=== PATIENT | female | born 1955 | race Caucasian/White ===

== ENCOUNTER 2017-01-28 10:41 | Inpatient (IN) | payer OTHER ==
[~2017-01-28] VITALS: Ht 165.1 cm; Wt 59.0 kg
[~2017-01-28 10:41] MED LIST: AUGMENTIN 875 M1 TAB PO; CLINDAMYCIN HY300 MG PO; LEXAPRO10 M1 PO; PERCOCET 325 MG1 TA2 PO
--- NOTE | 2017-01-28 10:48 | ED GENERAL ADULT ---
See Addendum History of Present Illness General Chief Complaint: ETOH/Drug Related Complaint Stated Complaint: BIBA FOR ?OD Source: patient, family, old records, EMS Exam Limitations: no limitations Vital Signs & Intake/Output Vital Signs & Intake/Output Vital Signs Date Time Temp Pulse Resp B/P B/P Pulse O2 O2 Flow FiO2 Mean Ox Delivery Rate 01/28 2230 96 Nasal 4.0L Cannula 01/28 2136 99.5 87 15 134/92 93 Nasal 4.0L Cannula 01/28 1827 97.3 96 20 144/92 97 Nasal 4.0L Cannula 01/28 1627 97.9 97 15 120/77 96 Nasal 4.0L Cannula 01/28 1507 98.2 87 15 118/78 96 Nasal 3.0L Cannula 01/28 1314 98 Nasal 3.0L Cannula 01/28 1314 98.8 88 14 122/76 98 Nasal 3.0L Cannula 01/28 1237 104 16 134/85 94 Nasal 3.0L Cannula 01/28 1110 99.5 97 20 146/88 96 Nasal 4.0L Cannula ED Intake and Output 01/29 0000 01/28 1200 Intake Total Output Total Balance Patient 130 lb Weight Weight Reported by Patient Measurement Method Allergies Coded Allergies: ampicillin (Intermediate, HIVES 01/28/17) azithromycin (Intermediate, HIVES 01/28/17) Reconcile Medications AMOXICILLIN/POTASSIUM CLAV (Augmentin 875-125 Tablet) 875 MG/125 MG TAB 1 TAB PO BID DENTAL INFECTION AMOXICILLIN/POTASSIUM CLAV (Augmentin 875-125 Tablet) 875 MG/125 MG TAB 1 TAB PO BID INFECTION CLINDAMYCIN HCL (Clindamycin Hydrochloride) 300 MG CAPSULE 1 CAP PO 4 TIMES/ DAY oral infection Escitalopram Oxalate (Lexapro 10MG) 10 MG TABLET 1 TAB PO PRN DEPRESSION ( Reported) OXYCODONE HCL/ACETAMINOPHEN (Percocet 5-325 MG Tablet) 325 MG/5 MG TAB 1 TAB PO Q4-6 PRN PRN PAIN OXYCODONE HCL/ACETAMINOPHEN (Percocet 5-325 MG Tablet) 325 MG/5 MG TAB 1-2 TAB PO Q4-6 PRN PRN PAIN Triage Nurses Notes Reviewed? yes HPI: Patient was found semi-responsive snoring respirations by her son. Patient goes to the methadone clinic. Upon EMS arrival patient was given Narcan. Patient then became very combative and nauseous. Upon arrival to the emergency room patient is much more calm down. Patient denies any suicidal ideations. Patient states that she just takes her methadone as prescribed. (YAMILE ARAYA,MARCELLA Kwon) Past History Travel History Traveled to [place] past 21 day No Medical History Any Pertinent Medical History? see below for history Neurological: migraine EENT: tonsil infections Cardiovascular: PALPITATIONS Respiratory: bronchitis, COPD, pneumonia Gastrointestinal: GAS Hepatic: NONE Renal: NONE Musculoskeletal: sciatica Psychiatric: depression Endocrine: NONE Blood Disorders: NONE Cancer(s): NONE GEOPHYSICAL OPERATOR/Reproductive: NONE Surgical History Surgical History: non-contributory Psychosocial History What is your primary language Spanish Tobacco Use: Current Daily Use Daily Tobacco Use Amount/Type: => 5 Cigarettes daily ETOH Use: occasional use Illicit Drug Use: ON METHADONE Family History Hx Contributory? No (YAMILE ARAYA,MARCELLA Kwon) Review of Systems Review of Systems Constitutional: Reports: no symptoms. EENTM: Reports: no symptoms. Respiratory: Reports: no symptoms. Cardiovascular: Reports: no symptoms. GI: Reports: see HPI, nausea. Genitourinary: Reports: no symptoms. Musculoskeletal: Reports: no symptoms. Skin: Reports: no symptoms. Neurological/Psychological: Reports: no symptoms. Hematologic/Endocrine: Reports: no symptoms. Immunologic/Allergic: Reports: no symptoms. All Other Systems: Reviewed and Negative (YAMILE ARAYA,MARCELLA Kwon) Physical Exam Physical Exam General Appearance: well developed/nourished, alert, awake, mild distress Head: atraumatic, normal appearance Eyes: Bilateral: PERRL, EOMI. Ears, Nose, Throat: normal pharynx, normal ENT inspection, hearing grossly normal Neck: normal inspection, supple, full range of motion Respiratory: normal breath sounds, chest non-tender, no respiratory distress, lungs clear Cardiovascular: regular rate/rhythm, normal peripheral pulses Gastrointestinal: normal bowel sounds, soft, non-tender, no organomegaly Back: normal inspection, normal range of motion Extremities: normal inspection, normal capillary refill, normal range of motion, no edema Neurologic/Psych: no motor/sensory deficits, awake, alert, oriented x 3, normal mood/affect Skin: intact, normal color, warm/dry Lymphatic: no anterior cervical suzi Core Measures ACS in differential dx? No CVA/TIA Diagnosis: No Severe Sepsis Present: No Septic Shock Present: No (YAMILE ARAYA,MARCELLA Kwon) Progress Differential Diagnoses I considered the following diagnoses in my evaluation of the patient: [ ACCIDENTAL OVERDOSE, SI, NARCOTIC ABUSE] Plan of Care: Orders Procedure Date/time Status Regular Diet 01/29 B Active Patient Data 01/29 0151 Active OXYGEN SETUP (GEN) 01/29 013 Active Saline Lock 01/29 013 Active Admit to inpatient 01/29 135 Active Activity/Ambulation 01/29 135 Active BLOOD CULTURE 01/29 135 Active Discharge Patient 01/[address] in observation 01/28 1708 Active Patient Data 01/28 1708 Active Vital Signs 01/28 1708 Active Code Status 01/28 1708 Active Durable Medical Equipment 01/28 1603 Active ED CRISIS PSYCH CONSULT 01/28 1536 Active Telemetry/Field Examiner 01/28 1044 Active URINE DRUGS OF ABUSE 01/28 1044 Complete ETHANOL 01/28 1044 Complete COMPREHENSIVE METABOLIC PANEL 01/28 1044 Complete CBC WITHOUT DIFFERENTIAL 01/28 1044 Complete Current Medications Sig/Gen Start time Last Medication Dose Stop Time Status Admin Clindamycin 600 MG ONCE ONE 01/29 0145 AC (Cleocin) 01/29 0214 Dextrose/Water 50 ML (D5W) Dextrose/Water 1,000 ML Q8H 01/28 1315 AC 01/28 (D5W 1000) 2136 Laboratory Tests 01/28/17 1123: Anion Gap 9, Estimated GFR > 60, BUN/Creatinine Ratio 15.0, Glucose 81, Calcium 8.8, Total Bilirubin 0.3, AST 24, ALT 36, Alkaline Phosphatase 75, Total Protein 5.9 L, Albumin 3.8, Globulin 2.1, Albumin/Globulin Ratio 1.8, CBC w Diff MAN DIFF ORDERED, RBC 4.24, MCV 103.7 H, MCH 34.0 H, RDW 14.0, MPV 6.1 L, Gran % 91.8 H, Lymphocytes % 4.2 L, Monocytes % 3.3, Eosinophils % 0.5, Basophils % 0.2, Absolute Granulocytes 18.3 H, Segmented Neutrophils 84 H, Band Neutrophils 6 H, Absolute Lymphocytes 0.8 L, Lymphocytes 4 L, Monocytes 4, Absolute Monocytes 0.7 H, Eosinophils 1, Absolute Eosinophils 0.1, Absolute Basophils 0, Metamyelocytes 1, Normocytic RBCs VERIFIED, Normochromic RBCs VERIFIED, PUBS MCHC 32.8 L, Serum Alcohol < 10.0 01/28/17 1121: Urine Opiates Screen < 100.00, Methadone Screen > 735 H, Barbiturate Screen < 60, Ur Phencyclidine Scrn 7.50, Amphetamines Screen < 100, U Benzodiazepines Scrn < 85, Urine Cocaine Screen < 50, Urine Cannabis Screen < 5.00 Microbiology 01/29 0145 BLOOD: Blood Culture - RECD 01/29 0135 BLOOD: Blood Culture - ORD Diagnostic Imaging: Viewed by Me: Radiology Read. Discussed w/RAD: Radiology Read. Radiology Impression: PATIENT: KAYLEE SURESH PRESENT AGE: 61 PATIENT ACCOUNT NO: [id number] : 56 LOCATION: [facility] ORDERING PHYSICIAN: MARCELLA OVALLE MD SERVICE DATE: 01/28/17-1136 EXAM TYPE: RAD - XRY-SHOULDER COMPLETE-RIGHT EXAMINATION: XR SHOULDER, RIGHT CLINICAL INFORMATION: Fall with pain COMPARISON: 02/26/2013 TECHNIQUE: AP external rotation, Grashey, scapular Y, and axillary views of the right shoulder. FINDINGS: There is an old fracture involving the right humerus with subluxation of the humeral head. At the time of the 2012 study this appeared to be acute. Of note, since the prior exam there has developed a comminuted distal right clavicular fracture which is most likely the cause of the patient's acute pain. Minimal fracture fragment displacement is seen. IMPRESSION: 1. Acute fracture right clavicle. 2. Old fracture right humerus. DICTATED BY: NGA NI MD DATE/TIME DICTATED:01/28/171252 FOOTWEAR SALES LEADER:JEREMÍAS DATE/TIME TRANSCRIBED:01/28/171252 CONFIDENTIAL, DO NOT COPY WITHOUT APPROPRIATE AUTHORIZATION. <Electronically signed in Other Vendor System> SIGNED BY: NGA NI MD 01/28/17 1335 Initial ED EKG: none Hand-Off Endorsed To: LADONNA PEÑA MD Endorsed Time: 2112 Pending: consult (CRISIS) Comments: Patient's son states that she took an extra 60 mg of methadone this morning. (YAMILE ARAYA,MARCELLA Kwon) CXR Impression: RLL infiltrate (LDAONNA PEÑA MD) Departure Departure Disposition: STILL A PATIENT Condition: Stable Referrals: [facility] CM APRN (PCP/Family) Additional Instructions: RETURN FOR ANY CONCERNS Departure Forms: Customer Survey General Discharge Information (MARCELLA OVALLE MD) Departure Time of Disposition: 0100 Clinical Impression Primary Impression: Pneumonia Qualifiers: Pneumonia type: due to unspecified organism Laterality: left Lung location: lower lobe of lung Qualified Code: J18.1 - Lobar pneumonia, unspecified organism Secondary Impressions: Opiate overdose Qualifiers: Encounter type: initial encounter Injury intent: accidental or unintentional Qualified Code: T40.601A - Poisoning by unspecified narcotics, accidental (unintentional), initial encounter Right clavicle fracture Qualifiers: Encounter type: initial encounter Clavicle location: unspecified part of clavicle Fracture type: closed Fracture alignment: nondisplaced Qualified Code: S42.001A - Fracture of unspecified part of right clavicle, initial encounter for closed fracture Admission Note Spoke With: EDWARD GALVAN MD Documentation of Exam: Documentation of any treatments & extenuating circumstances including Concerns Regarding Discharge (functional status, medication knowledge or non-compliance, living conditions, etc.) that warrant an admission rather than observation: Supplemental oxygen IV antibiotics serial beta agonist nebs medication adjustment pulmonary evaluation continuing care discharge planning (LADONNA PEÑA MD) Critical Care Note Critical Care Note Critical Care Time: non-applicable (MARCELLA OVALLE MD) ED Attending Observation Initial Observation Note: I have seen and personally examined KAYLEE SURESH on 01/28/17 at 1718. I agree with the current emergency department documentation. The disposition (admission or discharge) is uncertain at this time, she needs a period of observation for the following reason(s): [METHADONE OVERDOSE, RECEIVED NARCAN, WILL NEED CRISIS EVAL.] The ED Nurse caring for this patient has been personally informed as to what the patient is being observed for. Observation Re-Evaluation: I have reevaluated KAYLEE SURESH on 01/28/17 at 2113. The physical findings that support the continued need to observe this patient include [patient still somnolent however will wake up when she is talk to. Her lungs are clear to auscultation heart regular rate and rhythm.]. (MARCELLA OVALLE MD) Observation Discharge: I have reevaluated KAYLEE SURESH on 01/29/17 at 0158. The patient is: (): Stable for discharge (x): To be admitted to Nursing Floor (): To be placed in Observation on Nursing Floor (): For transfer to other facility The patient was being observed for opiate overdose As a result of that observation, I have determined requires hospitalization for treatment of pneumonia. (CASEY ARAYA,LADONNA)
--- NOTE | 2017-01-28 11:16 | NUR ---
PT BIBA FROM HOME WHERE SHE WAS FOUND UNRESPONSIVE WITH AGONAL RESPIRATIONS AFTER TAKING HER METHADONE. PT RECEIVED NARCAN CITY DISPATCHER IN ED. PT AWAKE AND ALERT. PT STATES RECENTLY HAD METHADONE DOSE DECREASED FROM 130 MG TO 125 MG. PT STATES SHE IS UNSURE IF SHE TOOK ANY OTHER MEDICATIONS. PT C/0 RIGHT SHOULDER PAIN FROM FALL IN SHOWER THIS MORNING PRIOR TO OD INCIDENT. PT CHANGED INTO SCRUBS ASSISTED TO BR FOR URINE SPECIMEN. PT ARRIVE TO ED IN WET CLOTHES
--- NOTE | 2017-01-28 11:25 | NUR ---
BLOOD AND URINE COLLECTED AND SENT TO LAB BLOOD: YUMIKO CONDE PINK BLUE TUBES COLLECTED URINE TRIO SET COLLECTED
--- NOTE | 2017-01-28 11:30 | NUR ---
PRE-HOSP IV NOTED TO BE COMPLETELY DISLODGED. NEW 20G PIV PLACED RFA, PT NSR 90S ON MONITOR WITH 02 SATS MID 90S ON 2.5L NC (HX COPD, "I'M SUPPOSED TO WEAR 02 AT HOME, BUT I DON'T.") CYCLING BPS STABLE. SON VISITING. PT REQUESTING WATER BUT VERY DROWSY, MOUTH SWABS PROVIDED. 1 BELONGINGS BAG PLACED IN CLOSET, PT ALREADY IN BLUE SCRUBS, NO VALUABLES FOUND.
[2017-01-28 11:32] LABS: ABSOLUTE BASOPHIL COUNT 0 /CUMM (0.0-0.2); ABSOLUTE EOSINOPHIL COUNT 0.1 /CUMM (0.0-0.7); ABSOLUTE GRANULOCYTE CT 18.3 /CUMM (1.4-6.5); ABSOLUTE LYMPH COUNT 0.8 /CUMM (1.2-3.4); ABSOLUTE MONOCYTE COUNT 0.7 /CUMM (0.10-0.60); BASOPHIL % 0.2 % (0.0-2.0); EOSINOPHIL % 0.5 % (0-5); GRANULOCYTE % 91.8 % (42.2-75.2); HEMATOCRIT 43.9 % (37-47); MEAN CORPUSCULAR HGB CONC 32.8 G/DL (33.0-37.0); MEAN CORPUSCULAR VOLUME 103.7 FL (81.0-99.0); MEAN PLATELET VOLUME 6.1 FL (7.4-10.4); PLATELET COUNT 298 /CUMM (130-400); RED BLOOD CELL CT 4.24 /CUMM (4.20-5.40); WHITE BLOOD CELL COUNT 19.9 /CUMM (4.8-10.8)
--- NOTE | 2017-01-28 12:10 | NUR ---
XRAY BEING DONE PORTABLY AT BEDSIDE R/T PT'S LEVEL OF SEDATION AND SITTER.
--- NOTE | 2017-01-28 12:55 | NUR ---
PT VERY SOMNOLENT, VSS ON 02 NC, AROUSABLE WITH TACTILE STIMULATION BUT FALLS BACK TO SLEEP QUICKLY. PT UP TO COMMODE WITH SITTER PRESENT, ON COMMODE X10MIN AND SLEEPING ON COMMODE. RETURNED TO STRETCHER AFTER 10MIN PT UNABLE TO STAY AWAKE. PT THEN INSISTING ON GETTING OOB TO BR AGAIN; PLACED ON BEDPAN. SITTER REMAINS AT BEDSIDE.
--- NOTE | 2017-01-28 13:35 | RADIOLOGY REPORT ---
EXAMINATION: XR SHOULDER, RIGHT CLINICAL INFORMATION: Fall with pain COMPARISON: 02/26/2013 TECHNIQUE: AP external rotation, Grashey, scapular Y, and axillary views of the right shoulder. FINDINGS: There is an old fracture involving the right humerus with subluxation of the humeral head. At the time of the 2012 study this appeared to be acute. Of note, since the prior exam there has developed a comminuted distal right clavicular fracture which is most likely the cause of the patient's acute pain. Minimal fracture fragment displacement is seen. IMPRESSION: 1. Acute fracture right clavicle. 2. Old fracture right humerus.
--- NOTE | 2017-01-28 14:12 | NUR ---
JUAN C TO VERIFY HOME MEDS DUE TO CURRENT CIRCUMSTANCES
--- NOTE | 2017-01-28 15:08 | NUR ---
REMAINS SOMNOLENT, AROUSES TO NOXIOUS STIMULI, ON MONITOR WITH VSS. SITTER REMAINS IN ATTENDANCE.
--- NOTE | 2017-01-28 17:00 | NUR ---
PT MOVED TO [facility], PER MD DOES NOT NEED TELE, REMAINS ON CONT 02 SATS WITH 02 NC 3L MAINTAINING SATS 96-99. REMAINS SOMNOLENT, RAY WITH NOXIOUS STIMULI.
--- NOTE | 2017-01-28 18:28 | NUR ---
PT WOKE WITH VITALS, REMAINS DROWSY, AMBULATED TO BATHROOM WITH 1 ASSIST AND PORTABLE 02. NEEDS FREQUENT PROMPTS TO STAY AWAKE WHEN SITTING ON TOILET. RETURNED TO STRETCHER, ASKING TO SMOKE, REORIENTED TO PLACE/TIME/POC. REMAINS ON PORTABLE MONITOR FOR CONTINUOUS SP02.
--- NOTE | 2017-01-28 18:58 | NUR ---
NICOTENE PATCH APPLIED PER MD ORDER/PT REQUEST. PT ASLEEP ON STRETCHER, NOW AROUSING ONLY TO NOXIOUS STIMULI. VSS.
--- NOTE | 2017-01-28 19:38 | NUR ---
RIGHT SHOULDER IMMOBILIZER APPLIED PER ORDER (CLAVICULAR FX ON XRAY). PT SLEPT THROUGH THIS, SATS MID 90S ON 3LNC.
--- NOTE | 2017-01-28 20:31 | ED PSY CRISIS COLLATERAL NOTE ---
Collateral Note Collateral Note Family/Inform/Adama Contacts: IDALIA spoke with the patient's (Man Nicolas [phone]) and son (Milind Nicolas), for collateral information. Man deferred to their son, Milind for the majority of the information. Milind notes that his mother "is an addict," and has been "clean on Methadone for 1 year." Milind notes that the patient told him today that she took an extra 60mg of Methadone, in addition to her standard 125mg dose. Milind reports that his mother often states that she does not feel good in the morning time and he believes that she may have saved some Methadone from previous doses to take in the morning time. Milind notes that she receives bottles to take home, a week at a time, noting that she went today and he has the other 6 bottles. Milind is not aware that the patient has ever had any mental health issues and and states that the patient primarily struggles with her substance abuse issues. Milind states that he has never known the patient to be suicidal or homicidal and is not concerned that she is a danger to herself or others. He is concerned that "her addiction will kill her." Milind is aware that the patient will be here overnight and would like to be contacted in the AM.
--- NOTE | 2017-01-28 21:30 | NUR ---
C/O PAIN TO PROBE ON FINGER "ITS TOO TIGHT GET ME THE FUCK OUT OF HERE." ICE WATER PROVIDED PER DEMAND. REMAINS AGITATED WITH POOR INSIGHT INTO ILLNESS
--- NOTE | 2017-01-28 21:35 | NUR ---
PT AMBULATORY TO AND FROM BATHROOM, AFTER WALKING SP02 MID 80S ON RA. PLACED BACK ON NC WITH CONT SP02. AWAKE AND ALERT AT THIS TIME.
--- NOTE | 2017-01-28 22:34 | NUR ---
D/W DR PEÑA THAT SP02 ON RA REMAINS MID 80S DESPITE PT BEING AWAKE AND ALERT. PT REPORTS SHE FEELS AT BASELINE RESP LUONG, PT REPORTS HEAVY SMOKING WITH CHRONIC COPD AND CHRONIC CONGESTED COUGH. CONFIRMED WITH PT THAT SHE HAS BEEN PRESCRIBED HOME 02 BUT REFUSES TO WEAR. DENIES ANY NEW SYMPTOMS. REMAINS ON 02 IN HALLWAY AT THIS TIME, RT AT BEDSIDE WITH ALENA VIEIRA, AWAITING CXR RESULTS FOR POC. CRISIS TO EVAL PT IN THE AM.
--- NOTE | 2017-01-28 23:07 | RADIOLOGY REPORT ---
EXAMINATION: XR PORTABLE CHEST CLINICAL INFORMATION: Hypoxia. COMPARISON: 07/23/2016, 07/07/2012. TECHNIQUE: Portable AP view of the chest was obtained. FINDINGS: The cardiomediastinal silhouette is unremarkable. Lung volumes appear somewhat diminished. There is patchy opacity identified in the infrahilar right lung field medially suggesting evolving infiltrate and pneumonia in the proper clinical setting. The lungs and pleural spaces otherwise appear clear without evidence of congestion, consolidation, or significant appearing effusion or atelectasis. There is no evidence of pneumothorax or pulmonary edema. Included osseous structures appear largely unremarkable. IMPRESSION: Low lung volumes with questionable evolving right lower lung field infrahilar infiltrate for which follow-up PA and lateral films when possible recommended.
--- NOTE | 2017-01-28 23:30 | NUR ---
PT AGAIN SLEEPING IN HALLWAY. REPORTED FEELING "BETTER" AFTER NEB, STATES HAS NEBULIZER AND MEDS FOR IT AT HOME. PLACED ON LIQUID 02 TANK BY RT. REPORT GIVEN TO SUPERINT[employer]ENT OPERATIONS DIVISION.
--- NOTE | 2017-01-29 01:51 | NUR ---
PT AWAKE AGITATED AT BEING IN [place] ALL DAY REPORTS THAT HER WAS ADMITTED TO HOSPITAL TODAY ALLSO REQUESTS HER METHADONE, PT AWARE SHE IS BEING ADMITTED AND THAT SHE TOOK TOO MUCH METHADONE AND WILL NOT GET IT UNTIL AM.
--- NOTE | 2017-01-29 02:14 | NUR ---
PT SOMEWHAT CONFUSED THICK HARSH COUGH, UNABLE TO REMEMBER TO COVER MOUTH WHEN COUGHING GIVEN WATER, BUT THEN BEGAN COUGHING MED WITH TYLENOL 975 MG PO NEW IV SITE PLACED D/T IV SITE TO RT ARM WHERE PT IS IN SLING
--- NOTE | 2017-01-29 02:33 | History & Physical ---
PABLO ARAYA,CLOVER 01/29/17 0232: General Information and HPI MD Statement: I have seen and personally examined KAYLEE NICOLAS and documented this H&P. The patient is a 61 year old F who presented with a patient stated chief complaint of [COUGH, SHORTNESS OF BREATH]. Source of Information: patient Exam Limitations: poor historian History of Present Illness: Patient is a poor historian so much of the information will need re- confirmation. 61 yo F with past medical condition of COPD not requiring O2 at home (follows Dr Almodovar), and not other medical conditions was brought in by ambulance earlier today after her son (Milind Nicolas) found her semi-responsive in her home. 911 was called and EMS gave her Narcan, to which she became alert, combative, and nauseous. She was brought in the emergency department, but was unable to give proper history, her son Milind was able to provide history to the ED crisis team that she has pain on a long-term substance abuser, recently on methadone for a year, but has been occasionally taking extra dose of methadone. Her standard dose is 125 mg of Methadone daily. Patient was initially admitted as ED FOR opiate overdose, but was found to be hypoxic and requiring additional oxygen on ambulation, chest x-ray was done which shows questionable developing pneumonia. Patient endorses only shortness of breath. Not sure if patient vomited at home in her semi-arousable state. Patient denies any fever, chills, cough, chest pain, leg swelling, changes in bowel habits, recent travel, any sick contacts. Once again, patient is a poor historian so most of the history needs reconfirmation. Patient was complaining of right upper side of chest/shoulder region pain, but was not sure whether she had any trauma/fall injury. Allergies/Medications Allergies: Coded Allergies: ampicillin (Intermediate, HIVES 01/28/17) azithromycin (Intermediate, HIVES 01/28/17) Home Med list Escitalopram Oxalate (Lexapro) 10 MG TABLET 1 TAB PO DAILY MENTAL HEALTH ( Reported) Past History Travel History Traveled to [place] past 21 day No Medical History Neurological: migraine EENT: tonsil infections Cardiovascular: PALPITATIONS Respiratory: bronchitis, COPD, pneumonia Gastrointestinal: GAS Hepatic: NONE Renal: NONE Musculoskeletal: sciatica Psychiatric: depression Endocrine: NONE Blood Disorders: NONE Cancer(s): NONE HOSPICE CLINICAL MARKETER/Reproductive: NONE Surgical History Surgical History: non-contributory Past Family/Social History Psychosocial History Where do you live? Home Who Do You Live With? spouse, child Primary Language: Italian Smoking Status: Current Everyday Smoker (1 pack per day) ETOH Use: occasional use Illicit Drug Use: ON METHADONE Functional Ability ADLs Independent: dressing, eating, toileting, bathing. Review of Systems Review of Systems Constitutional: Reports: see HPI. Denies: fever. EENTM: Reports: no symptoms. Cardiovascular: Reports: no symptoms. Respiratory: Reports: see HPI, short of breath. Denies: cough. GI: Reports: no symptoms. Genitourinary: Reports: no symptoms. Musculoskeletal: Reports: see HPI, joint pain (right shoulder). Skin: Reports: no symptoms. Neurological/Psychological: Reports: no symptoms. Hematologic/Endocrine: Reports: no symptoms. All Other Systems: Reviewed and Negative Exam & Diagnostic Data Last 24 Hrs of Vital Signs/I&O Vital Signs Date Time Temp Pulse Resp B/P B/P Pulse O2 O2 Flow FiO2 Mean Ox Delivery Rate 01/29 0223 97.5 89 18 110/76 95 Nasal 2.0L Cannula 01/28 2230 96 Nasal 4.0L Cannula 01/28 2136 99.5 87 15 134/92 93 Nasal 4.0L Cannula 01/28 1827 97.3 96 20 144/92 97 Nasal 4.0L Cannula 01/28 1627 97.9 97 15 120/77 96 Nasal 4.0L Cannula 01/28 1507 98.2 87 15 118/78 96 Nasal 3.0L Cannula 01/28 1314 98 Nasal 3.0L Cannula 01/28 1314 98.8 88 14 122/76 98 Nasal 3.0L Cannula 01/28 1237 104 16 134/85 94 Nasal 3.0L Cannula 01/28 1110 99.5 97 20 146/88 96 Nasal 4.0L Cannula Intake & Output 01/29 0800 01/29 0000 01/28 1600 Intake Total Output Total Balance Patient 58.967 kg Weight Weight Reported by Patient Measurement Method Last 24 Hrs of Labs/Man: Laboratory Tests 01/28/17 1123: Anion Gap 9, Estimated GFR > 60, BUN/Creatinine Ratio 15.0, Glucose 81, Calcium 8.8, Total Bilirubin 0.3, AST 24, ALT 36, Alkaline Phosphatase 75, Total Protein 5.9 L, Albumin 3.8, Globulin 2.1, Albumin/Globulin Ratio 1.8, CBC w Diff MAN DIFF ORDERED, RBC 4.24, MCV 103.7 H, MCH 34.0 H, RDW 14.0, MPV 6.1 L, Gran % 91.8 H, Lymphocytes % 4.2 L, Monocytes % 3.3, Eosinophils % 0.5, Basophils % 0.2, Absolute Granulocytes 18.3 H, Segmented Neutrophils 84 H, Band Neutrophils 6 H, Absolute Lymphocytes 0.8 L, Lymphocytes 4 L, Monocytes 4, Absolute Monocytes 0.7 H, Eosinophils 1, Absolute Eosinophils 0.1, Absolute Basophils 0, Metamyelocytes 1, Normocytic RBCs VERIFIED, Normochromic RBCs VERIFIED, PUBS MCHC 32.8 L, Serum Alcohol < 10.0 01/28/17 1121: Urine Opiates Screen < 100.00, Methadone Screen > 735 H, Barbiturate Screen < 60, Ur Phencyclidine Scrn 7.50, Amphetamines Screen < 100, U Benzodiazepines Scrn < 85, Urine Cocaine Screen < 50, Urine Cannabis Screen < 5.00 Microbiology 01/29 0200 BLOOD: Blood Culture - RECD 01/29 0145 BLOOD: Blood Culture - RECD Diagnostic Data CXR Results IMPRESSION: Low lung volumes with questionable evolving right lower lung field infrahilar infiltrate for which follow-up PA and lateral films when possible recommended. DICTATED BY: JASE VIRK MD DATE/TIME DICTATED:01/28/172300 GRADE CHECKER:JEREMÍAS DATE/TIME TRANSCRIBED:01/28/172300 Other Results Physical examnination: General: thin buit patient, not in distress, somnolent Head: Normocephalic, atraumatic Eyes: Pupils normal in size, regular, reacting to light and accommodation, EOM normal Ears: B/l normal on inspection Nose: Normal on inspection Throat/mouth: Dry mucosa Neck: Supple, full range of motion Heart: Regular rate, regular rhythm Lung: Normal breath sound bilaterally; additional conducted sound heard b/l no wheeze Abd: Soft, non-tender, no distention appreciated Back: Normal range of motion Neurologic: Somnolent, oriented to place, and time of the day, Speech is clear and coherent but exam is limited by her somnolence (exam done in the ED at night while the patient was just awake) Skin: Warm and dry Psychiatric: Calm, cooperative, coherant, no SI, no HI OF NOTE, SHE HAD A SLING POUCH OVER HER RIGHT SHOULDER AND DISTAL PART OF RIGHT CLAVICLE WAS TENDER TO TOUCH. IMPRESSION: 1. Acute fracture right clavicle. 2. Old fracture right humerus. DICTATED BY: NGA NI MD DATE/TIME DICTATED:01/28/171252 GRADE CHECKER:JEREMÍAS DATE/TIME TRANSCRIBED:01/28/171252 Assessment/Plan Assessment: 61-year-old female with past medical history of COPD not requiring oxygen at home, and denying any other medical conditions, except polysubstance abuse, currently only on methadone was brought to the emergency department with suspicion of possible overdose. She was found to be hypoxic, requiring additional oxygen via nasal cannula, and was a question of possible aspiration pneumonia, she is admitted to general meedical floor. #Possible aspiration pneumonia: Starting patient on IV clindamycin, as she is allergic to ampicillin. Continue TRC/nebs. Follow-up LRC and blood culture. Gentle IV hydration. #Right clavicle fracture: Initial management has been done in the emergency department, consider consulting orthopedic service for further management of right clavicle fracture. Adequate pain management should be done, but needs to be further discussed after methadone overdose is taking care of. #Substance abuse, methadone overdose: Patient's vitals are stable except for respiratory status, thus withdrawn and would not be restarted at this point of time. Will avoid opiates for pain management. Need to reassess in the morning regarding pain management as the patient currently is asymptomatic at rest. #Diet: Heart healthy #DVT ppx: Lovenox #Code status: Full code As Ranked By This Provider Problem List: 1. Aspiration pneumonia 2. Opioid abuse 3. Right clavicle fracture Qualifiers Encounter type: initial encounter Clavicle location: unspecified part of clavicle Fracture type: closed Fracture alignment: nondisplaced Qualified Code: S42.001A - Fracture of unspecified part of right clavicle, initial encounter for closed fracture Core Measures/Miscellaneous Acute Coronary Syndrome ACS Diagnosis: No Cerebrovascular Accident CVA/TIA Diagnosis: No Congestive Heart Failure CHF Diagnosis: No VTE (View Protocol) VTE Risk Factors: Age > 40 No Mech VTE prophylaxis d/t: No contraindications No VTE Pharm Prophylaxis d/t: No contraindications VTE Diagnosis: No VTE Type: NONE VTE Confirmed by (Test): NONE Sepsis (View Protocol) Severe Sepsis Present: No Septic Shock Septic Shock Present: No Miscellaneous Documentation Attending Case Discussed With: Dr Edward Galvan Primary Care Physician: BOSTON CM APRN Patient sees these Specialists Internal Medicine Level of Patient Care: General Medicine EDWARD GALVAN MD 01/29/17 0402: Attending MD Review Statement Attending Statement Attending MD Statement: examined this patient, discuss w/resident/PA/PRINT PRODUCTION MANAGER, agreed w/resident/PA/PRINT PRODUCTION MANAGER, reviewed EMR data (avail) Attending Assessment/Plan: 61F PMH polysubstance abuse on Methadone, COPD brought into ED by family for somnolence and bradypnea, improved dramatically after being given Narcan, monitored in ED when she was noted to be short of breath, coughing, and requiring 4L NC to maintain oxygen saturation. CXR shows RLL infiltrate with WBC 19k, suspicious for aspiration pneumonia. Patient has no complaints other than generalized pain. Son not at bedside for further questions. 1. Methadone overdose, unintentional 2. Aspiration pneumonia in RLL 3. Hypoxia 4. COPD Plan - Admit to general medicine - Has Unasyn allergy, so will start Clindamycin for aspiration pneumonia - Sputum culture - Psychiatry consult - Will hold off on restarting Methadone until mental status improves, avoid opioids at this time - Gentle IV hydration - Continue home medications - DVT PPx
--- NOTE | 2017-01-29 03:33 | NUR ---
HOUSESTAFF AT BEDSIDE.
--- NOTE | 2017-01-29 03:36 | NUR ---
HOUSESTAFF AT BEDSIDE.
--- NOTE | 2017-01-29 05:23 | NUR ---
NO BED AVAILABLE, PT AWAITING HOSPITAL BED TO BE BROUGHT TO ED.
--- NOTE | 2017-01-29 05:24 | NUR ---
CURRENTLY NO INPT ORDERS.
--- NOTE | 2017-01-29 05:53 | NUR ---
PT REPORTS GETS HER METHADONE AT [facility] IN [facility]
[2017-01-29] MEDS ORDERED: PERCOCET 5-3251 EACH PO (06:12)
[2017-01-29 06:40] LABS: ABSOLUTE BASOPHIL COUNT 0 /CUMM (0.0-0.2); ABSOLUTE EOSINOPHIL COUNT 0 /CUMM (0.0-0.7); ABSOLUTE GRANULOCYTE CT 8.9 /CUMM (1.4-6.5); ABSOLUTE LYMPH COUNT 1.2 /CUMM (1.2-3.4); ABSOLUTE MONOCYTE COUNT 0.6 /CUMM (0.10-0.60); BASOPHIL % 0 % (0.0-2.0); EOSINOPHIL % 0.3 % (0-5); GRANULOCYTE % 83.2 % (42.2-75.2); HEMATOCRIT 42.9 % (37-47); MEAN CORPUSCULAR HGB 33.7 PG (27.0-31.0); MEAN CORPUSCULAR HGB CONC 32.5 G/DL (33.0-37.0); MEAN CORPUSCULAR VOLUME 103.8 FL (81.0-99.0); MEAN PLATELET VOLUME 5.8 FL (7.4-10.4); PLATELET COUNT 307 /CUMM (130-400); RBC DISTRIBUTION WIDTH 13.9 % (11.5-14.5); RED BLOOD CELL CT 4.14 /CUMM (4.20-5.40); WHITE BLOOD CELL COUNT 10.6 /CUMM (4.8-10.8)
--- NOTE | 2017-01-29 07:00 | NUR ---
ASSUMED CARE. PLAN IS FOR GEN MED ADMISSION. AWAITING GEN MED BED. Informed waiting has been performed.
--- NOTE | 2017-01-29 07:30 | NUR ---
SPOKE WITH [facility] REGARDING PT'S METHADONE DOSE. PT HAS BEEN RECEIVING 125MG METHADONE FOR A WHILE. THERE WAS NO CHANGE IN PT'S METHADONE PER [facility]. PT'S LAST DOSE WAS 125MG ON 01/28. PT WAS ALSO SENT HOME WITH METHADONE DOSES THROUGH February.
--- NOTE | 2017-01-29 08:15 | NUR ---
PT CHANGED INTO GOWN. AMBULATED TO BATHROOM WITH STEADY GAIT. AWAITING BED ON GEN MED. SLING REMAINS IN PLACE ON RIGHT ARM. Informed waiting has been performed.
--- NOTE | 2017-01-29 09:30 | NUR ---
FAMILY AT BEDSIDE. PT PROVIDED COFFEE PER HER REQUEST. Informed waiting has been performed.
--- NOTE | 2017-01-29 09:56 | NUR ---
ELDER FROM CRISIS AT BEDSIDE.
--- NOTE | 2017-01-29 10:39 | NUR ---
BED ASSIGNMENT 204-2
--- NOTE | 2017-01-29 10:55 | NUR ---
PT CONTINUES TO TAKE HER O2 OFF. EDUCATED ON NEED FOR OXYGEN. HOUSESTAFF IN FOR EVAL.
--- NOTE | 2017-01-29 11:08 | NUR ---
REPORT TO LETICIA GOMEZ ON 2NB.
--- NOTE | 2017-01-29 11:18 | PN- Att Addend ---
Attending Addendum Attending Brief Note Patient seen and examined, she is much more awake. Overall she is feeling better. Her breathing has improved. Vital Signs Date Time Temp Pulse Resp B/P B/P Pulse O2 O2 Flow FiO2 Mean Ox Delivery Rate 01/29 1055 96 Nasal 2.0L Cannula 01/29 1050 98.8 93 18 122/86 83 Room Air 01/29 0816 97.0 80 20 136/85 96 Nasal 2.0L Cannula 01/29 0555 97.2 78 28 114/72 94 Nasal 2.0L Cannula 01/29 0223 97.5 89 18 110/76 95 Nasal 2.0L Cannula 01/28 2230 96 Nasal 4.0L Cannula 01/28 2136 99.5 87 15 134/92 93 Nasal 4.0L Cannula 01/28 1827 97.3 96 20 144/92 97 Nasal 4.0L Cannula 01/28 1627 97.9 97 15 120/77 96 Nasal 4.0L Cannula 01/28 1507 98.2 87 15 118/78 96 Nasal 3.0L Cannula 01/28 1314 98 Nasal 3.0L Cannula 01/28 1314 98.8 88 14 122/76 98 Nasal 3.0L Cannula 01/28 1237 104 16 134/85 94 Nasal 3.0L Cannula on exam; aox3, nad cv; s1,s2, rrr resp; + exp wheeze. abd; soft, nt, bs+ ext; no edema. Laboratory Tests 01/29 01/28 0634 1123 Chemistry Sodium (137 - 145 mmol/L) 137 135 L Potassium (3.5 - 5.1 mmol/L) 4.0 4.2 Chloride (98 - 107 mmol/L) 99 99 Carbon Dioxide (22 - 30 mmol/L) 33 H 27 Anion Gap (5 - 16) 5 9 BUN (7 - 17 mg/dL) 10 9 Creatinine (0.5 - 1.0 mg/dL) 0.5 0.6 Estimated GFR (>60 ml/min) > 60 > 60 BUN/Creatinine Ratio (7 - 25 %) 20.0 15.0 Glucose (65 - 99 mg/dL) 81 Calcium (8.4 - 10.2 mg/dL) 8.8 Total Bilirubin (0.2 - 1.3 mg/dL) 0.3 AST (14 - 36 U/L) 24 ALT (9 - 52 U/L) 36 Alkaline Phosphatase (<127 U/L) 75 Total Protein (6.3 - 8.2 g/dL) 5.9 L Albumin (3.5 - 5.0 g/dL) 3.8 Globulin (1.9 - 4.2 gm/dL) 2.1 Albumin/Globulin Ratio (1.1 - 2.2 %) 1.8 Hematology CBC w Diff MAN DIFF ORDERED MAN DIFF ORDERED WBC (4.8 - 10.8 /CUMM) 10.6 19.9 H RBC (4.20 - 5.40 /CUMM) 4.14 L 4.24 Hgb (12.0 - 16.0 G/DL) 13.9 14.4 Hct (37 - 47 %) 42.9 43.9 MCV (81.0 - 99.0 FL) 103.8 H 103.7 H MCH (27.0 - 31.0 PG) 33.7 H 34.0 H RDW (11.5 - 14.5 %) 13.9 14.0 Plt Count (130 - 400 /CUMM) 307 298 MPV (7.4 - 10.4 FL) 5.8 L 6.1 L Gran % (42.2 - 75.2 %) 83.2 H 91.8 H Lymphocytes % (20.5 - 51.1 %) 11.1 L 4.2 L Monocytes % (1.7 - 9.3 %) 5.4 3.3 Eosinophils % (0 - 5 %) 0.3 0.5 Basophils % (0.0 - 2.0 %) 0 L 0.2 Absolute Granulocytes (1.4 - 6.5 /CUMM) 8.9 H 18.3 H Segmented Neutrophils (42.2 - 75.2 %) 74 84 H Band Neutrophils (0.0 - 5.0 %) 6 H Absolute Lymphocytes (1.2 - 3.4 /CUMM) 1.2 0.8 L Lymphocytes (20.5 - 51.1 %) 13 L 4 L Monocytes (1.7 - 9.3 %) 13 H 4 Absolute Monocytes (0.10 - 0.60 /CUMM) 0.6 0.7 H Eosinophils (0 - 5.0 %) 1 Absolute Eosinophils (0.0 - 0.7 /CUMM) 0 0.1 Absolute Basophils (0.0 - 0.2 /CUMM) 0 0 Metamyelocytes (0.0 - 1.0 %) 1 Platelet Estimate (ADEQUATE) ADEQUATE Normocytic RBCs VERIFIED Normochromic RBCs VERIFIED Polychromasia 1+ Hypochromic-Microcytic 1+ Poikilocytosis 1+ Anisocytosis 1+ Macrocytic Cells 1+ Ovalocytes 1+ PUBS MCHC (33.0 - 37.0 G/DL) 32.5 L 32.8 L Other Body Source Fld Total RBCs Counted (%) 100 Toxicology Serum Alcohol (<10 MG/DL) < 10.0 01/28 1121 Toxicology Urine Opiates Screen (>2000 NG/ML) < 100.00 Methadone Screen (>300 NG/ML) > 735 H Barbiturate Screen (>200 NG/ML) < 60 Ur Phencyclidine Scrn (>25 NG/ML) 7.50 Amphetamines Screen (>1000 NG/ML) < 100 U Benzodiazepines Scrn (>200 NG/ML) < 85 Urine Cocaine Screen (>300 NG/ML) < 50 Urine Cannabis Screen (>50 NG/ML) < 5.00 A/P; 61-year-old female with past medical history significant for COPD, chronic smoker, on chronic methadone secondary to history of substance abuse who was admitted with possible methadone overdose and semi-unresponsiveness responded to Narcan and also had developed aspiration pneumonia. Continue clindamycin and follow-up on cultures. Psych consult will be obtained. Please call [facility] [place] and discuss with them about the patient's methadone dose. She is on very high-dose of 125 mg of methadone. Continue TRC nebs. Leukocytosis has improved. Continue inhalers. Continue other medications. Please stop IV fluids. DVT prophylaxis: Lovenox.
--- NOTE | 2017-01-29 11:21 | NUR ---
PT GIVEN BACK 1 BELONGING BAG. NO VALUABLE BAGS NOTED.
--- NOTE | 2017-01-29 11:36 | Cons- Psychiatry ---
Psychiatric Consult Date of Consult: 01/29/17 Reason for Consult: substance abuse History of Present Illness: Client presented to the ED on 01/28/17 after being found semi-unresponsive by her son. Client is a patient on methadone maintenance. She was given narcan upon EMS arrival and became combative and nauseous. Interview is limited as client had family visiting and was only willing to meet this filing writer for a brief period of time. She requests her and adult son stay for interview. Client seen, sitting on bed in ED. She has R arm in a sling, and states she fractured her clavicle. Client reports her mood is "much better" though she continues to be intermittently "sad". Her reports that he feels she is depressed. Son reports that he does not feel mom has mental health problems, but he has concerns about her addiction history. Client denies suicidal ideation, intent, or plan. Adamantly denies that she took more methadone than prescribed in an OD attempt, but also reports that she does not recall the circumstances of what happened very clearly. Son reports that as she was awakening after the OD he asked her if she took more methadone than she was supposed to and she said yes, however, he is not sure that client understood the question because "she was out of it". Client does not recall this interaction. Family do not believe that this was a suicide attempt. Client has no prior history of suicide attempt. She makes a safety promise with this filing writer. She denies past or present AH/VH/ PI. She endorses depression 4/10 (10 worst), anxiety 7/10 (10 worst). Denies alcohol, cannabis, or illicit drug use. ~2 years sobriety from heroin (IV) and opiate pill use. Client lives in a house with her and son. She is a 61 year old white female. She reports he family is supportive. Denies family history of suicide. Reports son has ADHD. She has a legal history of one arrest for larceny. She reports she is on lexapro from PCP for depression, gabapentin for nerve pain, and methadone for opiate use disorder. She believes she has been on lexapro for 20+ years. She states they have narcan at home. CPMRS checked, patient found, no prescriptions. Allergies: Coded Allergies: ampicillin (Intermediate, HIVES 01/28/17) azithromycin (Intermediate, HIVES 01/28/17) Current Medications: Current Medications Sig/Gen Start time Last Medication Dose Route Stop Time Status Admin Acetaminophen 650 MG Q6P PRN 01/29 0615 AC PO Acetaminophen 0 .STK-MED ONE 01/29 0202 DC PO Albuterol Sulfate 2 PUF Q6 01/29 1200 AC INH Albuterol Sulfate 3 ML ONCE ONE 01/28 2230 DC 01/28 INH 01/28 2231 2228 Budesonide/ 1 PUF BID 01/29 1043 AC Formoterol Fumarate INH Clindamycin 600 MG IQ8 01/29 0800 AC 01/29 Dextrose/Water 50 ML IV 0800 Clindamycin 600 MG ONCE ONE 01/29 0145 DC 01/29 Dextrose/Water 50 ML IV 01/29 0214 0222 Dextrose/Water 1,000 ML Q8H 01/28 1315 AC 01/28 IV 2136 Enoxaparin Sodium 0 .STK-MED ONE 01/29 1017 DC SC Enoxaparin Sodium 40 MG DAILY 01/29 1000 AC 01/29 SC 1010 Escitalopram Oxalate 20 MG DAILY 01/30 1000 AC PO Escitalopram Oxalate 10 MG DAILY 01/29 1000 DC 01/29 PO 1010 Gabapentin 300 MG BID 01/29 1041 AC PO Ipratropium [place] 2.5 ML ONCE ONE 01/28 2230 DC 01/28 INH 01/28 2231 2228 Methadone HCl 0 .STK-MED ONE 01/29 0835 DC PO Methadone HCl 0 .STK-MED ONE 01/29 0835 DC PO Methadone HCl 125 MG ONCE ONE 01/29 0830 DC 01/29 PO 01/29 0831 0830 Nicotine 21 MG 1900 01/29 1900 AC TOP Nicotine 21 MG DAILY 01/29 1041 DC TOP Nicotine 0 .STK-MED ONE 01/28 1903 DC TOP Nicotine 21 MG ONCE ONE 01/28 1900 DC 01/28 TOP 01/28 1901 1857 Ondansetron HCl 4 MG ONCE ONE 01/29 0215 DC 01/29 IV 01/29 0216 0221 Ondansetron HCl 0 .STK-MED ONE 01/29 0214 DC .ROUTE Polyethylene Glycol 17 GM AT BEDTIME 01/29 2200 AC PO Senna/Docusate Sodium 1 TAB AT BEDTIME 01/29 2200 AC PO Sodium Chloride 1,000 ML Q13H 01/29 0615 AC 01/29 IV 01/29 191 0700 Past History Past Medical History Neurological: migraine EENT: tonsil infections Cardiovascular: PALPITATIONS Respiratory: bronchitis, COPD, pneumonia Gastrointestinal: GAS Hepatic: NONE Renal: NONE Musculoskeletal: sciatica Psychiatric: depression Endocrine: NONE Blood Disorders: NONE Cancer(s): NONE SHIPPING HELPER/Reproductive: NONE Past Surgical History Surgical History: non-contributory Psychiatric Treatment History Psych Treatment Psychiatric Treatment Yes Inpatient Treatment No Outpatient Treatment Yes (from primary care provider) Diagnosis: reports hx of depression Risk Factors: substance abuse Substance Use/Abuse History Drug Use/Abuse Substances Used/Abused Yes Substance Used/Abused Other (list in comments) (heroin, opiate pills) Last Used 2 years ago, on methadone maintenance Substance Abuse Treatment Substance Abuse Treatment Past Substance Abuse [place] Yes Outpatient Treatment Yes Location of Treatment [facility] Assessment/Plan Mental Status Orientation: Person, Place, Situation (intermittently confused) Affect: Appropriate Speech: Normal Neuro-vegetative: Energy Decreased Mental Status Exam: Client seen sitting on hospital bed with family nearby. She has fair eye contact and normal speech. Her thought process is goal oriented, though at times she seems confused. She will say she took her lexapro this morning, then later on say she did not take her lexapro, for example. She is oriented to month and year (01/23/17). Lab Results: Laboratory Tests 01/29 0634 Chemistry Sodium (137 - 145 mmol/L) 137 Potassium (3.5 - 5.1 mmol/L) 4.0 Chloride (98 - 107 mmol/L) 99 Carbon Dioxide (22 - 30 mmol/L) 33 H Anion Gap (5 - 16) 5 BUN (7 - 17 mg/dL) 10 Creatinine (0.5 - 1.0 mg/dL) 0.5 Estimated GFR (>60 ml/min) > 60 BUN/Creatinine Ratio (7 - 25 %) 20.0 Hematology CBC w Diff MAN DIFF ORDERED WBC (4.8 - 10.8 /CUMM) 10.6 RBC (4.20 - 5.40 /CUMM) 4.14 L Hgb (12.0 - 16.0 G/DL) 13.9 Hct (37 - 47 %) 42.9 MCV (81.0 - 99.0 FL) 103.8 H MCH (27.0 - 31.0 PG) 33.7 H RDW (11.5 - 14.5 %) 13.9 Plt Count (130 - 400 /CUMM) 307 MPV (7.4 - 10.4 FL) 5.8 L Gran % (42.2 - 75.2 %) 83.2 H Lymphocytes % (20.5 - 51.1 %) 11.1 L Monocytes % (1.7 - 9.3 %) 5.4 Eosinophils % (0 - 5 %) 0.3 Basophils % (0.0 - 2.0 %) 0 L Absolute Granulocytes (1.4 - 6.5 /CUMM) 8.9 H Segmented Neutrophils (42.2 - 75.2 %) 74 Absolute Lymphocytes (1.2 - 3.4 /CUMM) 1.2 Lymphocytes (20.5 - 51.1 %) 13 L Monocytes (1.7 - 9.3 %) 13 H Absolute Monocytes (0.10 - 0.60 /CUMM) 0.6 Absolute Eosinophils (0.0 - 0.7 /CUMM) 0 Absolute Basophils (0.0 - 0.2 /CUMM) 0 Platelet Estimate (ADEQUATE) ADEQUATE Polychromasia 1+ Hypochromic-Microcytic 1+ Poikilocytosis 1+ Anisocytosis 1+ Macrocytic Cells 1+ Ovalocytes 1+ PUBS MCHC (33.0 - 37.0 G/DL) 32.5 L Other Body Source Fld Total RBCs Counted (%) 100 Diffential Diagnosis: Opiate use disorder severe on maintenance medication Unspecified depressive disorder r/o Delirium Impression: Patient is a 61 year old female with a history of opiate use disorder on methadone maintenance and depression. Unclear ?accidental overdose of methadone. Provisional Treatment Plan: 1. Continue lexapro 2. Continue methadone, hold if client is obtunded 3. Consider discharging client with intranasal narcan kit if home narcan has Thank you for including psychiatry in this case. We will follow as needed.
--- NOTE | 2017-01-29 11:47 | NUR ---
PT TO FLOOR VIA STRETCHER. ALL PAPERWORK AND BELONGINGS SENT. CLINICAL STATUS UNCHANGED.
--- NOTE | 2017-01-29 12:00 | NUR ---
ADMISSION NOTE: PT ARRIVED TO FLOOR IN STRETCHER WITH DISTRIBUTION, A/OX3, 2L NC, IV INTACT, IVF RUNNING PER MD ORDER, LUNG SOUNDS INS/EXP WHEEZE, PT REPORTS THAT IN THE PAST 2 MONTHS SHE HAS HAD SOME DIFFICULTY SWALLOWING LIQUIDS, ORIENTED TO ROOM, RSTING IN BED IN SAFE LOW POSITION.
[2017-01-29 12:10] VITALS: BP 118/78
[2017-01-29 14:33] VITALS: BP 120/60
--- NOTE | 2017-01-29 15:46 | Incdntl Nt Psy ---
Incidental Note Notation: Client reports she is on methadone from [facility] (?). She does not give this procedure writer permission to call.
--- NOTE | 2017-01-29 16:18 | Event Note ---
Event Note Event Note: This is a 61 year old female with a histroy of COPD, Depression, Migraine and Polysubstance abuse. This patient is admitted to General Medicine services due to opiod overdose and hypoxemia, possible Aspiration Pneumonia. Since this patient has an unclear history of Methadone Program, her medical team agreed to contact [facility] [place] [place] at [phone]. I talked via telephone with Arcenio Romero, Substace Abuse Clinician in [facility] and Yimi Holland, Cardiology Coordinator Methadone Program in [facility]. Both agree that this patient started going to [facility], an outpatient clinic, in June 11, 2015 after being treated in [facility] in [place], [place] since 2013. In 2014, patient wanted to be trasfered to the [facility] because she was looking for priviledges services. They refered as priviledge services when they give bottles of Methadone for more than one day at home. Patient was transfer to [facility]. Since this patient was complaint with her dose, and no hisotry of overdose since started the program, she achieved 6 bottles a week, each bottle contain 125mg of Methadone, one per day. Patient needed to go every week to picked up the bottles for the week. Patiente started on 30mg a day back in 2014, increasing to 125mg of Methadone which is her actual dose. Last evaluation from the physician in [facility] was on September,, where she was stable and complaint with her actual dose, no overdose noted or documented. Patient started developing Opioid dependece at age 57 with Oxycodone, then changed to Heroin and then started on the Methadone program in 2013 in [place], [place] and then moved to her actual Rehabilitation Center ([facility]) as mentioned above. Beside opioid abuse, this patient has a history of Cocaine abuse since her 21 years old, she is clean for more than 2 years ago, she also started drinking alcohol at 16 years old, quiting one year ago and use of Marijuana since 16 years old, which she still using it occasionally. This information was given by Arcenio Romero and Yimi Holland via telephone to Jaiden Wood.
[2017-01-29 23:14] VITALS: BP 135/88
[2017-01-30 06:55] VITALS: BP 155/95
[2017-01-30 08:35] LABS: ABSOLUTE BASOPHIL COUNT 0 /CUMM (0.0-0.2); ABSOLUTE EOSINOPHIL COUNT 0.2 /CUMM (0.0-0.7); ABSOLUTE GRANULOCYTE CT 4.8 /CUMM (1.4-6.5); ABSOLUTE LYMPH COUNT 1.5 /CUMM (1.2-3.4); ABSOLUTE MONOCYTE COUNT 0.9 /CUMM (0.10-0.60); BASOPHIL % 0.3 % (0.0-2.0); EOSINOPHIL % 2.3 % (0-5); GRANULOCYTE % 65.5 % (42.2-75.2); HEMATOCRIT 43.2 % (37-47); MEAN CORPUSCULAR HGB 33.6 PG (27.0-31.0); MEAN CORPUSCULAR HGB CONC 32.8 G/DL (33.0-37.0); MEAN CORPUSCULAR VOLUME 102.4 FL (81.0-99.0); MEAN PLATELET VOLUME 6.5 FL (7.4-10.4); PLATELET COUNT 304 /CUMM (130-400); RBC DISTRIBUTION WIDTH 13.9 % (11.5-14.5); RED BLOOD CELL CT 4.22 /CUMM (4.20-5.40); WHITE BLOOD CELL COUNT 7.4 /CUMM (4.8-10.8)
--- NOTE | 2017-01-30 09:24 | PN- Housestaff ---
MILAD ARAYA,[facility] 01/30/17 0924: Subjective Follow-up For: Methadone overdose Aspiration pneumonia Subjective: Patient said she kept waking up every 2 hours at night because of her shoulder pain. Denies any fever, chills, vomiting, shortness of breath or chest pain. Review of Systems Constitutional: Reports: no symptoms. EENTM: Reports: no symptoms. Cardiovascular: Reports: no symptoms. Respiratory: Reports: no symptoms. Gastrointestinal: Reports: no symptoms. Genitourinary: Reports: no symptoms. Musculoskeletal: Reports: joint pain. Skin: Reports: no symptoms. Neurological/Psychological: Reports: no symptoms. Hematologic/Endocrine: Reports: no symptoms. Immunologic/Allergic: Reports: no symptoms. Objective Last 24 Hrs of Vital Signs/I&O Vital Signs Date Time Temp Pulse Resp B/P B/P Pulse O2 O2 Flow FiO2 Mean Ox Delivery Rate 01/30 1758 95 Room Air 01/30 1600 95 Room Air 01/30 1438 98.4 78 20 122/76 94 Room Air 01/30 1014 93 Room Air 01/30 0800 Room Air 01/30 0655 98.2 75 20 155/95 93 Room Air 01/30 0000 Room Air 01/29 2314 99.5 82 20 135/88 94 Nasal 2.0L Cannula Intake & Output 01/30 1600 01/30 0800 01/30 0000 Intake Total 1210 0 800 Output Total Balance 1210 0 800 Intake, IV 130 100 Intake, Oral 1080 0 700 Number 1 Bowel Movements Physical Exam General Appearance: Alert, Oriented X3, Cooperative Skin: No Rashes, No Breakdown HEENT: Atraumatic, PERRLA, EOMI, Mucous Membr. moist/pink Cardiovascular: Regular Rate, Normal S1, Normal S2 Lungs: Clear to Auscultation, Normal Air Movement Abdomen: Normal Bowel Sounds, Soft, No Tenderness, No Hepatospenomegaly, No Masses Assessment/Plan Assessment: 61-year-old female with past medical history of COPD not requiring oxygen at home, and denying any other medical conditions, except polysubstance abuse, currently only on methadone was brought to the emergency department with suspicion of possible overdose. She was found to be hypoxic, requiring additional oxygen via nasal cannula, and was a question of possible aspiration pneumonia, she is admitted to general meedical floor. #Possible aspiration pneumonia: Starting patient on IV clindamycin, as she is allergic to ampicillin. Continue TRC/nebs. Follow-up LRC and blood culture. Gentle IV hydration. #Right clavicle fracture: Initial management has been done in the emergency department, consider consulting orthopedic service for further management of right clavicle fracture. Adequate pain management should be done, but needs to be further discussed after methadone overdose is taking care of. -Awaiting for 2 recommendations. #Substance abuse, methadone overdose: Patient's vitals are stable except for respiratory status, thus withdrawn and would not be restarted at this point of time. Will avoid opiates for pain management. Need to reassess in the morning regarding pain management as the patient currently is asymptomatic at rest. #Diet: Heart healthy #DVT ppx: Refused Lovenox #Code status: Full code Problem List: 1. Opioid abuse 2. Right clavicle fracture 3. Aspiration pneumonia Pain Ratin Pain Location: Right shoulder Pain Goal: Remain pain free Pain Plan: Pain pathway Tomorrow's Labs & Rationales: CBC(aspiration pneumonia), BEP RASTA ARAYA,AMIR 01/30/17 1607: Attending MD Review Statement Attending Statement Attending MD Statement: examined this patient, discuss w/resident/PA/HEAD OF MEASUREMENT & INSIGHTS, agreed w/resident/PA/HEAD OF MEASUREMENT & INSIGHTS, reviewed EMR data (avail) Attending Assessment/Plan: PT was seen and evalauted. Reports doing OK. VSS. Appreciate Psych eval.
[2017-01-30 14:38] VITALS: BP 122/76
[2017-01-30 23:23] VITALS: BP 134/88
[2017-01-31 06:00] VITALS: BP 138/94
[2017-01-31 09:12] LABS: ABSOLUTE BASOPHIL COUNT 0 /CUMM (0.0-0.2); ABSOLUTE EOSINOPHIL COUNT 0.2 /CUMM (0.0-0.7); ABSOLUTE GRANULOCYTE CT 3.6 /CUMM (1.4-6.5); ABSOLUTE LYMPH COUNT 1.5 /CUMM (1.2-3.4); ABSOLUTE MONOCYTE COUNT 0.9 /CUMM (0.10-0.60); BASOPHIL % 0.6 % (0.0-2.0); EOSINOPHIL % 3.5 % (0-5); HEMATOCRIT 44.7 % (37-47); MEAN CORPUSCULAR HGB 33.5 PG (27.0-31.0); MEAN CORPUSCULAR HGB CONC 32.5 G/DL (33.0-37.0); MEAN PLATELET VOLUME 6.4 FL (7.4-10.4); PLATELET COUNT 300 /CUMM (130-400); RBC DISTRIBUTION WIDTH 14.1 % (11.5-14.5); RED BLOOD CELL CT 4.34 /CUMM (4.20-5.40); WHITE BLOOD CELL COUNT 6.3 /CUMM (4.8-10.8)
--- NOTE | 2017-01-31 12:17 | PN- Housestaff ---
LEA ARAYA,[facility] 01/31/17 1217: Subjective Follow-up For: METHADONE OVERDOSE Subjective: i have seen and examined the pt. the pt was lying in the bed. feels ok no n/v/d. no fever. no chills . no acute overnight events Review of Systems Constitutional: Reports: see HPI. Objective Last 24 Hrs of Vital Signs/I&O Vital Signs Date Time Temp Pulse Resp B/P B/P Pulse O2 O2 Flow FiO2 Mean Ox Delivery Rate 01/31 1848 95 Room Air 01/31 1459 94 Room Air 01/31 1446 97.8 69 18 136/83 93 Room Air 01/31 1128 94 Room Air 01/31 0800 20 94 Room Air 01/31 0800 94 Room Air 01/31 0600 98.1 72 20 138/94 91 Room Air 01/30 2323 98.5 74 20 134/88 92 Intake & Output 01/31 1600 01/31 0800 01/31 0000 Intake Total 950 580 490 Output Total Balance 950 580 490 Intake, IV 50 100 10 Intake, Oral 900 480 480 Number 1 Bowel Movements Physical Exam General Appearance: Alert, Oriented X3, Cooperative, No Acute Distress Skin: No Rashes, No Breakdown Cardiovascular: Normal S1, Normal S2, No Murmurs Lungs: Clear to Auscultation, Normal Air Movement Abdomen: No Tenderness Neurological: Normal Speech, Strength at 5/5 X4 Ext Extremities: No Clubbing Current Medications: Current Medications Sig/Gen Start time Last Medication Dose Route Stop Time Status Admin Acetaminophen 650 MG Q6P PRN 01/29 0615 AC PO Albuterol Sulfate 3 ML Q4P PRN 01/30 1030 AC INH Albuterol Sulfate 2 PUF Q6 01/29 1200 AC 01/30 INH 1300 Budesonide/ 1 PUF BID 01/29 1043 AC 01/31 Formoterol Fumarate INH 1028 Clindamycin 600 MG IQ8 01/29 0800 AC 01/31 Dextrose/Water 50 ML IV 1642 Enoxaparin Sodium 40 MG DAILY 01/29 1000 AC 01/29 SC 1010 Escitalopram Oxalate 20 MG DAILY 01/30 1000 AC 01/31 PO 0853 Gabapentin 300 MG BID 01/29 1041 AC 01/31 PO 0853 Methadone HCl 125 MG ONCE ONE 01/31 1000 DC 01/31 PO 01/31 1001 1028 Nicotine 21 MG 1000 01/31 1000 AC 01/31 TOP 0854 Polyethylene Glycol 17 GM AT BEDTIME 01/29 2200 AC PO Senna/Docusate Sodium 1 TAB AT BEDTIME 01/29 2200 AC PO Last 24 Hrs of Lab/Man Results Last 24 Hrs of Labs/Mics: Laboratory Tests 01/31/17 0650: Anion Gap 7, Estimated GFR > 60, BUN/Creatinine Ratio 11.7, CBC w Diff NO MAN DIFF REQ, RBC 4.34, MCV 103.0 H, MCH 33.5 H, RDW 14.1, MPV 6.4 L, Gran % 57.0 , Lymphocytes % 24.2, Monocytes % 14.7 H, Eosinophils % 3.5, Basophils % 0.6, Absolute Granulocytes 3.6, Absolute Lymphocytes 1.5, Absolute Monocytes 0.9 H, Absolute Eosinophils 0.2, Absolute Basophils 0, PUBS MCHC 32.5 L Assessment/Plan Assessment: 61-year-old female with past medical history of COPD not requiring oxygen at home, and denying any other medical conditions, except polysubstance abuse, currently only on methadone was brought to the emergency department with suspicion of possible overdose. She was found to be hypoxic, requiring additional oxygen via nasal cannula, and was a question of possible aspiration pneumonia, she is admitted to general meedical floor. Possible aspiration pneumonia: * patient is on IV clindamycin, as she is allergic to ampicillin. * Continue TRC/nebs. * Follow-up LRC and blood culture. * Gentle IV hydration. Right clavicle fracture: Initial management has been done in the emergency department, Adequate pain management should be done, but needs to be further discussed after methadone overdose is taking care of. * talked to ortho on phone no intervention on 01/29 * sling conservative management Substance abuse, methadone overdose: Will avoid opiates for pain management. Need to reassess in the morning regarding pain management as the patient currently is asymptomatic at rest. * currently on methadone 125mg #Diet: Heart healthy #DVT ppx: Refused Lovenox #Code status: Full code Problem List: 1. Opioid abuse 2. Right clavicle fracture Pain Ratin Pain Location: R CLAVICLE Pain Goal: Pain 4 or less Pain Plan: MOTRIN Tomorrow's Labs & Rationales: NONE RASTA ARAYA,AMIR 01/31/17 6795: Attending MD Review Statement Attending Statement Attending MD Statement: examined this patient, discuss w/resident/PA/DOG FOOD DOUGH MIXER, agreed w/resident/PA/DOG FOOD DOUGH MIXER, reviewed EMR data (avail) Attending Assessment/Plan: Reports doing better. No overnight issues reported. Ambulating well.
[2017-01-31 14:46] VITALS: BP 136/83
--- NOTE | 2017-01-31 18:25 | NUR ---
NURSING SHIFT NOTE: PT REMAINS AWAKE, A/OX3, ROOM AIR 94%. DENIES DISTRESS, IV ANTIBX Q SHIFT; SEE EMAR. METHADONE DOSE GIVEN X1 THIS AM. DENIES OTHER COMPLAINTS, SLING TO R ARM FOR CLAV FX, PT S/P FALL OFF TOILET "I FELL ASLEEP WHILE I WAS ON THERE BECAUSE I HAD BEEN UP ALL DAY." PT REFUSING BED ALARM, STEADY GAIT NOTED; AMBULATED AROUND UNIT INDEP. NEEDS IN REACH, SAFTEY MAINTAINED.
[2017-01-31 23:37] VITALS: BP 138/70
[2017-02-01 06:43] VITALS: BP 114/80
--- NOTE | 2017-02-01 09:02 | PN- Housestaff ---
LEA ARAYA,[facility] 02/01/17 0902: Subjective Follow-up For: METHADONE OVERDOSE Clavicale fracture Subjective: I have seen and examined the patient. The patient was sitting comfortably in the bed. There is no complaint of fever chills nausea vomiting. There are no urinary symptoms. The patient does not complain of any heartburn, chest pain or palpitations. The patient wants to be discharged today. Her vitals have been stable. She will follow up with orthopedics for the clavicle fracture. [facility] Review of Systems Constitutional: Denies: see HPI. Objective Last 24 Hrs of Vital Signs/I&O Vital Signs Date Time Temp Pulse Resp B/P B/P Pulse O2 O2 Flow FiO2 Mean Ox Delivery Rate 02/01 0643 98.2 72 20 114/80 92 Room Air 01/31 2337 98.1 81 18 138/70 97 01/31 1848 95 Room Air 01/31 1459 94 Room Air 01/31 1446 97.8 69 18 136/83 93 Room Air Intake & Output 02/01 1600 02/01 0800 02/01 0000 Intake Total 100 900 Output Total Balance 100 900 Intake, IV 100 100 Intake, Oral 800 Physical Exam General Appearance: Alert, Oriented X3, Cooperative, No Acute Distress Skin: No Rashes, No Breakdown Cardiovascular: Normal S1, Normal S2, No Murmurs Lungs: Clear to Auscultation, Normal Air Movement Abdomen: Normal Bowel Sounds, Soft, No Tenderness Neurological: Normal Speech Extremities: No Tenderness/Swelling Current Medications: Current Medications Sig/Gen Start time Last Medication Dose Route Stop Time Status Admin Acetaminophen 650 MG Q6P PRN 01/29 0615 AC PO Albuterol Sulfate 2 PUF Q6 02/01 1800 CAN INH Albuterol Sulfate 3 ML Q4P PRN 01/30 1030 AC INH Albuterol Sulfate 2 PUF Q6 01/29 1200 AC 01/30 INH 1300 Budesonide/ 1 PUF BID 01/29 1043 AC 02/01 Formoterol Fumarate INH 0935 Clindamycin 600 MG IQ8 01/29 0800 AC 02/01 Dextrose/Water 50 ML IV 0843 Enoxaparin Sodium 40 MG DAILY 01/29 1000 AC 01/29 SC 1010 Escitalopram Oxalate 20 MG DAILY 01/30 1000 AC 02/01 PO 0932 Gabapentin 300 MG BID 02/01 220 CAN PO Gabapentin 300 MG BID 01/29 1041 AC 02/01 PO 0932 Ibuprofen 800 MG ONCE ONE 01/31 1930 DC 01/31 PO 01/31 Methadone HCl 125 MG ONCE ONE 02/01 930 DC 02/01 PO 02/01 931 0933 Nicotine 21 MG DAILY 02/02 1000 CAN TOP Nicotine 21 MG 1000 01/31 1000 AC 02/01 TOP 0930 Polyethylene Glycol 17 GM AT BEDTIME 01/29 2200 AC PO Senna/Docusate Sodium 1 TAB AT BEDTIME 01/29 2200 AC PO Assessment/Plan Assessment: 61-year-old female with past medical history of COPD not requiring oxygen at home, and denying any other medical conditions, except polysubstance abuse, currently only on methadone was brought to the emergency department with suspicion of possible overdose. She was semi-responsive her son called 911 and she received Narcan on upon arrival of EMS. She also suffered a fall and injured her right shoulder. In ED she was found to be hypoxic, requiring additional oxygen via nasal cannula, and was a question of possible aspiration pneumonia. ED workup showed Vitals 99.5, 97,20, 146/88, 96 on 4 L nasal cannula Pertinent labs white count of 19.9 H&H 14.4 43.9 BMP grossly within normal limits Methadone Screen > 735 CXR Results Low lung volumes with questionable evolving right lower lung field infrahilar infiltrate Shoulder x-ray 1. Acute fracture right clavicle.2. Old fracture right humerus Possible aspiration pneumonia: Patient came in with a white count of 19.9 with with low lung volume and right lower lung infiltrate on chest x-ray * patient was started on IV clindamycin, as she is allergic to ampicillin. * She is being discharged on oral clindamycin 300 MG 3 times a day to complete 7 day course of antibiotics. * TRC/nebs. * blood culture no growth after 1 day. Right clavicle fracture: Patient suffered a fall but does not remember she She complained of right shoulder pain x-ray showed right clavicle fracture. Initial management and stabilization was done in the emergency department * Adequate pain management * sling conservative management * The patient needs to follow-up with orthopedics Dr. Cruz in one or 2 weeks Substance abuse, methadone overdose: * Will avoid opiates for pain management. * currently on methadone 125mg * Patient is going to follow-up with [facility] for continuing methadone program * The [facility] has been notified about suspected methadone overdose. Depression * Continue escitalopram 10mg daily COPD * continue patient's home inhalers. * Smoking cessation counseling * Patient was provided nicotine patch and counseled not to smoke with the patch on Problem List: 1. Opioid abuse 2. Right clavicle fracture Pain Ratin Pain Location: right shoulder Pain Goal: Pain 4 or less Pain Plan: tylenol Tomorrow's Labs & Rationales: none FRANCINE TIM MD 02/01/17 1607: Attending MD Review Statement Attending Statement Attending MD Statement: examined this patient, discuss w/resident/PA/NETEZZA DEVELOPER, agreed w/resident/PA/NETEZZA DEVELOPER, reviewed EMR data (avail), discussed with nursing, discussed with case mgmt, reviewed images, amended to note Attending Assessment/Plan: Patient seen and examined, feels ok. Breathing is better. Ortho was contacted about clavicular fracture and they recommended outpatinet follow up. Currently on treatment laron ferguson for asp PNA. Medically stable for discharge today. Patient has been kept on methadone 125 mg daily and will be discharged on the same dose. We'll complete the course of oral antibiotics. Patient also requested nicotine patch. Patient was educated about absolutely no smoking while getting the nicotine patch. Patient to follow with primary care doctor for follow-up and [facility] for methadone.
--- NOTE | 2017-02-01 09:24 | Patient Discharge Instructions ---
Discharge Instructions General Discharge Information You were seen/treated for: METHADONE OVERDOSE ASPIRATION PNEUMONIA CLAVICAL FRACTURE Watch for these problems: Fever chest pain Increased shortness of breath increased sputum production change in sputum color blood in sputum Special Instructions: please follow up with PCP please follow up with [facility] continuing methadone program follow up with orthopedic for calvicle fracture Diet Continue normal diet: Yes Activity Activity Self Limited: Yes Acute Coronary Syndrome Inclusion Criteria At DC or during hospital stay patient has or had the following: ACS DIAGNOSIS No Discharge Core Measures Meds if any: Prescribed or Continued at Discharge Meds if any: NOT Prescribed or Continued at Discharge Congestive Heart Failure Inclusion Criteria At DC or during hospital stay patient has or had the following: CHF DIAGNOSIS No Discharge Core Measures Meds if any: Prescribed or Continued at Discharge Meds if any: NOT Prescribed or Continued at Discharge Cerebrovascular accident Inclusion Criteria At DC or during hospital stay patient has or had the following: CVA/TIA Diagnosis No Discharge Core Measures Meds if any: Prescribed or Continued at Discharge Meds if any: NOT Prescribed or Continued at Discharge Venous thromboembolism Inclusion Criteria VTE Diagnosis No VTE Type NONE VTE Confirmed by (Test) NONE Discharge Core Measures - Per Current guidelines, there needs to be overlap - treatment for the first 5 days of Warfarin therapy. - If discharged on Warfarin prior to 5 days of - overlap therapy, the patient will need to be - assessed for post discharge needs including - *Post discharge parental anticoagulation - *Warfarin and/or parental anticoagulation education - *Follow up date to check INR post discharge At least 5 days overlap therapy as Inpatient No Meds if any: Prescribed or Continued at Discharge Note: Overlap Therapy is Warfarin and Anticoagulant Meds if any: NOT Prescribed or Continued at Discharge
[2017-02-01] MEDS ORDERED: NICOTINE PATCH1 EAC3 TOP (13:57)
[2017-02-01] MEDS ORDERED: GABAPENTIN300 M2 PO (13:57)
[2017-02-01] MEDS ORDERED: VENTOLIN HFA18 GM INH (13:57)
[2017-02-01] MEDS ORDERED: TYLENOL325 M1 PO (13:57)
--- NOTE | 2017-02-01 13:58 | Discharge Summary ---
Visit Information Visit Dates Admission Date: 01/29/17 Discharge Date: 02/01/2017 Hospital Course Course Attending Physician: GLENROY ARAYA,FRANCINE Primary Care Physician: BOSTON CM APRN [facility] Course: 61-year-old female with past medical history of COPD not requiring oxygen at home, and denying any other medical conditions, except polysubstance abuse, currently only on methadone was brought to the emergency department with suspicion of possible overdose. She was semi-responsive her son called 911 and she received Narcan on upon arrival of EMS. She also suffered a fall and injured her right shoulder. In ED she was found to be hypoxic, requiring additional oxygen via nasal cannula, and was a question of possible aspiration pneumonia. ED workup showed Vitals 99.5, 97,20, 146/88, 96 on 4 L nasal cannula Pertinent labs white count of 19.9 H&H 14.4 43.9 BMP grossly within normal limits Methadone Screen > 735 CXR Results Low lung volumes with questionable evolving right lower lung field infrahilar infiltrate Shoulder x-ray 1. Acute fracture right clavicle.2. Old fracture right humerus Possible aspiration pneumonia: Patient came in with a white count of 19.9 with with low lung volume and right lower lung infiltrate on chest x-ray * patient was started on IV clindamycin, as she is allergic to ampicillin. * She is being discharged on oral clindamycin 300 MG 3 times a day to complete 7 day course of antibiotics. * TRC/nebs. * blood culture no growth after 1 day. Right clavicle fracture: Patient suffered a fall but does not remember she She complained of right shoulder pain x-ray showed right clavicle fracture. Initial management and stabilization was done in the emergency department * Adequate pain management * sling conservative management * The patient needs to follow-up with orthopedics Dr. Cruz in one or 2 weeks Substance abuse, methadone overdose: * Will avoid opiates for pain management. * currently on methadone 125mg * Patient is going to follow-up with [facility] for continuing methadone program * The [facility] has been notified about suspected methadone overdose. Depression * Continue escitalopram 10mg daily COPD * continue patient's home inhalers. * Smoking cessation counseling * Patient was provided nicotine patch and counseled not to smoke with the patch on Allergies: Coded Allergies: ampicillin (Intermediate, HIVES 01/28/17) azithromycin (Intermediate, HIVES 01/28/17) Disposition Summary Disposition Principal Diagnosis: METHADONE OVERDOSE ASPIRATION PNEUMONIA CLAVICAL FRACTURE Additional Diagnosis: CLAVICAL FRACTURE Discharge Disposition: home or self care Discharge Instructions General Discharge Information Code Status: Full Code Patient's Diet: Regular Patient's Activity: As tolerated Follow-Up Instructions/Appts: please follow up with PCP please follow up with [facility] for continuing methadone program follow up with orthopedic for calvicle fracture Medications at Discharge Discharge Medications: Stop taking the following medications: AMOXICILLIN/POTASSIUM CLAV (Augmentin 875-125 Tablet) 875 MG/125 MG TAB ORAL TWICE DAILY Qty = 14 AMOXICILLIN/POTASSIUM CLAV (Augmentin 875-125 Tablet) 875 MG/125 MG TAB ORAL TWICE DAILY Qty = 20 CLINDAMYCIN HCL (Clindamycin Hydrochloride) 300 MG CAPSULE ORAL 4 TIMES A DAY Qty = 28 Continue taking these medications: Escitalopram Oxalate (Lexapro) 10 MG TABLET 1 Tablet ORAL DAILY Comments: Last Taken:02/01/17 Time:9:30 AM Methadone HCl (Methadone HCl) 5 MG TABLET 125 Milligram ORAL DAILY Qty = 0 Comments: Last Taken:02/01/17 Time:9:30 AM Start taking the following new medications: Albuterol Sulfate (Ventolin Hfa) 90 MCG HFA.AER.AD 2 Puff Inhale through mouth EVERY SIX HOURS Qty = 2 No Refills Comments: Last Taken:01/30/17 Time:1:00 PM Nicotine (Nicotine Patch) 21 MG/24 HOUR PATCH.TD24 1 Unit On the skin DAILY Qty = 30 No Refills Comments: Last Taken:02/01/17 Time:9:30 AM Acetaminophen (Tylenol) 325 MG TABLET 1 Tablet ORAL EVERY SIX HOURS NEEDED as needed for PAIN Qty = 30 No Refills Comments: NOT GIVEN IN HOSPITAL Gabapentin (Gabapentin) 300 MG CAPSULE 1 Tablet ORAL TWICE DAILY Qty = 60 No Refills Comments: Last Taken:02/01/17 Time:9:30 AM Budesonide/Formoterol Fumarate (Symbicort 160-4.5 Mcg Inhaler) 160 MCG-4.5 MCG/ ACTUATION HFA.AER.AD 2 Puff Inhale through mouth TWICE DAILY Qty = 1 No Refills Comments: Last Taken:02/01/17 Time:9:30 AM Clindamycin HCl (Clindamycin HCl) 300 MG CAPSULE 1 Capsule ORAL THREE TIMES DAILY Qty = 11 No Refills Comments: NOT GIVEN IN HOSPITAL IV ABX GIVEN Copies To: BOSTON CM APRN Attending MD Review Statement Other Findings: Agree with above.
[2017-02-01] MEDS ORDERED: SYMBICORT 16010.2 GM INH (14:03)
[2017-02-01] MEDS ORDERED: CLINDAMYCIN HC300 M1 PO (14:07)
[2017-02-01] MEDS ORDERED: METHADONE HCL10 M1 PO (15:06)
[2017-02-01] MEDS ORDERED: METHADONE HCL5 MG PO (15:12)
[2017-02-01 15:30] VITALS: BP 126/74
--- NOTE | 2017-02-01 15:46 | NUR ---
ALERT AND ORIENTED X 3. ON ROOM AIR. DENIES SHORTNESS OF BREATH VITAL SIGNS STABLE. DENIES CHEST PAIN. + PULSES. TINGLING TO BLE. HX PERIPHERAL NEUROPATHY. NO EDEMA NOTED. STEADY GAIT. SKIN C/D/I SLING TO R SHOULDER. NO DISTRESS NOTED AT THIS TIME. SAFETY MAINTAINED
== END 2017-02-01 17:55 | DRG 812 ==
LOC: ERH 10:41 → ERHI 17:08 → 2NB 17:08 → CMPBEDREQ 01-29 03:19 → ENRESERV 01-29 10:08 → ENTRNSPT 01-29 11:12 → EDTRNSPT 01-29 11:45 → EDTRNSPTSTS 01-29 11:45 → 2NB 01-29 11:50 → CMPTRNSPT 01-29 12:09 → 2NB 01-31 14:45 → ENPENDDIS 02-01 16:50 → 2NB 02-01 17:55
PROVIDERS: Emergency Medicine; Internal Medicine; Student in an Organized Health Care Education/Training Program; ADMIT Hospitalist
DX: T40.3X1A Poisoning by methadone, accidental (unintentional), initial encounter (principal); J69.0 Pneumonitis due to inhalation of food and vomit; J44.9 Chronic obstructive pulmonary disease, unspecified; F32.9 Major depressive disorder, single episode, unspecified; F11.20 Opioid dependence, uncomplicated; R09.02 Hypoxemia; S42.001A Fracture of unspecified part of right clavicle, initial encounter for closed fracture; W19.XXXA Unspecified fall, initial encounter; Y92.009 Unspecified place in unspecified non-institutional (private) residence as the place of occurrence of the external cause; F17.210 Nicotine dependence, cigarettes, uncomplicated
CPT/HCPCS: 2NBSP; 6040; 36415; 73030-RT; 80307; 82436; 87040; 87070; 93005; 93010; 96374; 96375; 99232; G0378; G0480; J1650; J2405; J3490; J7060

== ENCOUNTER 2017-11-13 17:32 | Emergency (ER) | payer OTHER ==
[~2017-11-13] VITALS: Ht 157.5 cm; Wt 52.2 kg
[~2017-11-13 17:32] MED LIST changes: +CLINDAMYCIN HC300 M1 PO; +GABAPENTIN300 M2 PO; +METHADONE HCL10 M1 PO; +METHADONE HCL5 MG PO; +NICOTINE PATCH1 EAC3 TOP; +PERCOCET 5-3251 EACH PO; +SYMBICORT 16010.2 GM INH; +TYLENOL325 M1 PO; +VENTOLIN HFA18 GM INH
[2017-11-13 18:01] LABS: ABSOLUTE BASOPHIL COUNT 0 /CUMM (0.0-0.2); ABSOLUTE EOSINOPHIL COUNT 0.1 /CUMM (0.0-0.7); ABSOLUTE GRANULOCYTE CT 15.9 /CUMM (1.4-6.5); ABSOLUTE LYMPH COUNT 0.8 /CUMM (1.2-3.4); ABSOLUTE MONOCYTE COUNT 0.9 /CUMM (0.10-0.60); BASOPHIL % 0.2 % (0.0-2.0); EOSINOPHIL % 0.4 % (0-5); HEMATOCRIT 43.1 % (37-47); MEAN CORPUSCULAR HGB 34.3 PG (27.0-31.0); MEAN CORPUSCULAR HGB CONC 33.5 G/DL (33.0-37.0); MEAN CORPUSCULAR VOLUME 102.3 FL (81.0-99.0); MEAN PLATELET VOLUME 5.9 FL (7.4-10.4); PLATELET COUNT 303 /CUMM (130-400); RBC DISTRIBUTION WIDTH 13.8 % (11.5-14.5); RED BLOOD CELL CT 4.21 /CUMM (4.20-5.40); WHITE BLOOD CELL COUNT 17.6 /CUMM (4.8-10.8)
--- NOTE | 2017-11-13 18:16 | ED PSYCHIATRIC COMPLAINT ---
History of Present Illness General Chief Complaint: ETOH/Drug Related Complaint Stated Complaint: BIBA INGESTING METHADONE Source: patient Exam Limitations: clinical condition, intoxication Allergies Coded Allergies: ampicillin (Intermediate, HIVES 01/28/17) azithromycin (Intermediate, HIVES 01/28/17) Reconcile Medications Acetaminophen (Tylenol) 325 MG TABLET 1 TAB PO Q6P PRN PAIN Albuterol Sulfate (Ventolin Hfa) 90 MCG HFA.AER.AD 2 PUF INH Q6 COPD Budesonide/Formoterol Fumarate (Symbicort 160-4.5 Mcg Inhaler) 160 MCG-4.5 MCG/ ACTUATION HFA.AER.AD 2 PUF INH BID SHORTNESS OF BREATH Clindamycin HCl 300 MG CAPSULE 1 CAP PO TID PNEUMONIA Escitalopram Oxalate (Lexapro) 10 MG TABLET 1 TAB PO DAILY MENTAL HEALTH ( Reported) Gabapentin 300 MG CAPSULE 1 TAB PO BID NEUROPATHY Methadone HCl 5 MG TABLET 125 MG PO DAILY SUBSTANCE ABUSE (Reported) Nicotine (Nicotine Patch) 21 MG/24 HOUR PATCH.TD24 1 UNIT TOP DAILY SMCKING CESSATION Triage Note: BIBA ACCIDENTAL DOUBLE DOSE OF METHADONE Triage Nurses Notes Reviewed? yes Onset: Abrupt Duration: hour(s):, constant, continues in ED Timing: recent history Severity: moderate, severe HPI: 62-year-old female brought into the emergency room by ambulance after overdosing on her methadone. The reports that the patient accidentally took double her dosing. She is on 110 mg of methadone daily. She took 2 doses of this because she was seen today and given her supply for the weekend. There is no report of any other illicit drug use or alcohol. There was no thoughts of suicide. She found by the son in the bathroom on the ground unresponsive. (Kevin Joe) Vital Signs & Intake/Output Vital Signs & Intake/Output Vital Signs Date Time Temp Pulse Resp B/P B/P Pulse O2 O2 Flow FiO2 Mean Ox Delivery Rate 11/14 0352 97.4 88 20 109/70 97 11/13 2204 97.7 80 18 118/70 95 Nasal 2.0L Cannula 11/13 2149 74 16 122/72 95 Nasal 2.0L Cannula 11/13 2052 97.6 80 20 119/82 93 Nasal 2.0L Cannula 11/13 2037 94 20 124/60 97 Nasal 2.0L Cannula 05/12 1938 97.5 86 19 110/67 97 Nasal 2.0L Cannula 11/13 1902 96 20 118/70 94 Nasal 2.0L Cannula 11/13 1747 97.0 78 16 115/67 94 Nasal 4.0L Cannula ED Intake and Output 11/14 0000 11/13 1200 Intake Total Output Total Balance Patient 115 lb Weight (Jacoby ARAYA,Asa) Past History Travel History Traveled to [place] past 21 day No Medical History Any Pertinent Medical History? 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 No (Kevin Joe) Review of Systems Review of Systems Constitutional: Reports: no symptoms. EENTM: Reports: no symptoms. Respiratory: Reports: no symptoms. Cardiovascular: Reports: no symptoms. GI: Reports: no symptoms. Genitourinary: Reports: no symptoms. Musculoskeletal: Reports: no symptoms. Skin: Reports: no symptoms. Neurological/Psychological: Reports: see HPI. Hematologic/Endocrine: Reports: no symptoms. Immunologic/Allergic: Reports: no symptoms. All Other Systems: Reviewed and Negative (Kevin Joe) Physical Exam Physical Exam General Appearance: sedated, mild distress, thin, obtunded Head: atraumatic Eyes: Bilateral: PERRL, EOMI, other (pupils pinpoint). Ears, Nose, Throat: normal ENT inspection, hearing grossly normal Neck: normal inspection Respiratory: normal breath sounds, no respiratory distress Cardiovascular: regular rate/rhythm Extremities: normal range of motion Neurological/Psychiatric: awake, alert Behavoir/Eye Contact/Speech: uncooperative Skin: intact, normal color, warm/dry SAD PERSONS Done? unobtained due to conditi (Kevin Joe) Progress Differential Diagnosis: dementia, drug intoxication, drug overdose, drug withdrawal, electrolyte abnormality, encephalitis, hypoglycemia, hypothyroidism, IC hem/mass/tumor, meningitis Diagnostic Imaging: Viewed by Me: CT Scan. Discussed w/RAD: CT Scan. Radiology Impression: PATIENT: KAYLEE SURESH PRESENT AGE: 62 PATIENT ACCOUNT NO: [id number] : 56 LOCATION: [facility] ORDERING PHYSICIAN: Kevin DAVID SERVICE DATE: 11/13/17 EXAM TYPE: CAT - CT HEAD WO IV CONTRAST EXAMINATION: CT HEAD WITHOUT CONTRAST CLINICAL INFORMATION: 62-year-old woman with confusion. COMPARISON: None TECHNIQUE: Contiguous axial imaging was performed from the skull base to vertex without intravenous administration of contrast. DLP: 945 mGy-cm FINDINGS: There is no evidence of acute intracranial hemorrhage or territorial infarction. No abnormal mass effect or midline shift is seen. Degroot to white matter differentiation is well preserved. No extra-axial fluid collections are identified. The ventricles are normal in size. There is no abnormal attenuation within the brain parenchyma. The osseous structures and soft tissues are normal. The mastoid air cells and visualized portions of the paranasal sinuses are well aerated. IMPRESSION: No acute intracranial pathology. DICTATED BY: Jennifer Sapp MD DATE/ TIME DICTATED:11/13/171815 HAND TOOL FILER:JEREMÍAS DATE/TIME TRANSCRIBED: 11/13/171815 CONFIDENTIAL, DO NOT COPY WITHOUT APPROPRIATE AUTHORIZATION. < Electronically signed in Other Vendor System> SIGNED BY: Jennifer Sapp MD 06/21 Initial ED EKG: normal sinus rhythm, rate (109), Borderline T-wave abnormalities Comments: 11/13/2017 8:04:04 PM Patient was given Narcan because she was obtunded and not responding to sternal rub. Patient then became agitated and started swinging at the staff. She had to be restrained. She was a harm to herself and others (Sawyer DAVID,Kevin) Comments: 11/13/2017 6:26:57 PM I went to see patient because of agitation and yelling. Patient has been treated with 0.4 mg of Narcan secondary to methadone overdose. Patient has been placed in 4. leather restraints for her safety and the safety of the emergency department staff (she is angry, agitated and has been spitting) . Sedation has been ordered by JOANN. 11/14/2017 7:32:25 AM patient signed out to me by Dr. 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 (Bridgett ARAYA,Tano Ortiz) Plan of Care: Orders Procedure Date/time Status Restraint- Discontinue 11/13 1850 Active ED CRISIS PSYCH CONSULT 11/13 1828 Active Restraint- Behavioral (Order) 11/13 1827 Active URINE DRUGS OF ABUSE 11/13 1739 Complete TROPONIN LEVEL 11/13 1739 Complete ETHANOL 11/13 1739 Complete COMPREHENSIVE METABOLIC PANEL 11/13 1739 Complete CBC WITHOUT DIFFERENTIAL 11/13 1739 Complete EKG 11/13 1739 Active Laboratory Tests 11/14/17 0336: Urine Opiates Screen < 100, Methadone Screen > 735 H, Barbiturate Screen < 60, Ur Phencyclidine Scrn 7.60, Amphetamines Screen < 100, U Benzodiazepines Scrn < 85, Urine Cocaine Screen < 50, Urine Cannabis Screen < 5.00 11/13/17 1755: Anion Gap 8, Estimated GFR > 60, BUN/Creatinine Ratio 20.0, Glucose 146 H, Calcium 8.3 L, Total Bilirubin 0.2, AST 20, ALT 32, Alkaline Phosphatase 58, Troponin I < 0.01, Total Protein 5.8 L, Albumin 3.6, Globulin 2.2, Albumin/ Globulin Ratio 1.6, CBC w Diff NO MAN DIFF REQ, RBC 4.21, MCV 102.3 H, MCH 34.3 H, MCHC 33.5, RDW 13.8, MPV 5.9 L, Gran % 90.0 H, Lymphocytes % 4.4 L, Monocytes % 5.0, Eosinophils % 0.4, Basophils % 0.2, Absolute Granulocytes 15.9 H, Absolute Lymphocytes 0.8 L, Absolute Monocytes 0.9 H, Absolute Eosinophils 0.1, Absolute Basophils 0, Serum Alcohol < 10.0 Comments: Declines psychiatry evaluation for opiate overdose (Jacoby ARAYA,Asa) Departure Departure Condition: Stable Referrals: Teo Gutierrez APRN (PCP/Family) (Kevin Joe) Departure Time of Disposition: 434 Disposition: LEFT AGAINST MEDICAL ADVICE Clinical Impression Primary Impression: Methadone overdose Departure Forms: General Discharge Information PA/CERTIFIED PHYSICAL THERAPIST ASSISTANT Co-Sign Statement Statement: ED Attending supervision documentation- x I saw and evaluated the patient. I have also reviewed all the pertinent lab results and diagnostic results. I agree with the findings and the plan of care as documented in the PA's/CERTIFIED PHYSICAL THERAPIST ASSISTANT's documentation. [] I have reviewed the ED Record and agree with the PA's/CERTIFIED PHYSICAL THERAPIST ASSISTANT's documentation. [] Additions or exceptions (if any) to the PAs/CERTIFIED PHYSICAL THERAPIST ASSISTANT's note and plan are summarized below: [] (Jacoby ARAYA,Asa)
--- NOTE | 2017-11-13 18:21 | CT SCAN REPORT ---
EXAMINATION: CT HEAD WITHOUT CONTRAST CLINICAL INFORMATION: 62-year-old woman with confusion. COMPARISON: None TECHNIQUE: Contiguous axial imaging was performed from the skull base to vertex without intravenous administration of contrast. DLP: 945 mGy-cm FINDINGS: There is no evidence of acute intracranial hemorrhage or territorial infarction. No abnormal mass effect or midline shift is seen. Degroot to white matter differentiation is well preserved. No extra-axial fluid collections are identified. The ventricles are normal in size. There is no abnormal attenuation within the brain parenchyma. The osseous structures and soft tissues are normal. The mastoid air cells and visualized portions of the paranasal sinuses are well aerated. IMPRESSION: No acute intracranial pathology.
--- NOTE | 2017-11-13 21:02 | RADIOLOGY REPORT ---
EXAMINATION: XR PORTABLE CHEST CLINICAL INFORMATION: 62-year-old woman with confusion. COMPARISON: 05/17/2017 chest radiograph TECHNIQUE: Portable frontal view of the chest was obtained. FINDINGS: The lungs are generally well expanded, without evidence of focal airspace consolidation or pulmonary edema. Heart size is prominent, but stable. There are no pleural effusions. Chronic fractures of the right clavicle and proximal right humerus are unchanged. IMPRESSION: No radiographic evidence of an acute cardiopulmonary process.
[2017-11-14 03:52] VITALS: BP 109/70
== END 2017-11-14 07:45 | disposition left against medical advice (07) ==
LOC: ERH 17:32
PROVIDERS: Physician Assistant Medical
DX: T40.3X1A Poisoning by methadone, accidental (unintentional), initial encounter (principal)
CPT/HCPCS: 71045; 80307; 93005; 93010; 96372; 96374; 96375; G0480; J1200; J1630; J2310